=== PATIENT | male | born 1980 | race Caucasian/White ===

== ENCOUNTER 2021-03-06 12:22 | Emergency (ER) | payer MEDICAID ==
[~2021-03-06] VITALS: Ht 172.7 cm; Wt 100.0 kg
[~2021-03-06 12:22] MED LIST: NO MEDS REPORTED
[2021-03-06 12:23] VITALS: BP 160/90
== END 2021-03-06 13:47 | disposition home or self-care (01) ==
LOC: EMS 12:26
DX: L98.9 Disorder of the skin and subcutaneous tissue, unspecified (principal); F17.210 Nicotine dependence, cigarettes, uncomplicated
CPT/HCPCS: 99281; Z7502